=== PATIENT | female | born 1945 | race Caucasian/White ===

== ENCOUNTER → 2017-06-01 | Outpatient (CLI) | payer OTHER ==
[2017-06-01 18:01] LABS: BASO % 0.3 %; BASO ABS # 0.02 K/uL (0-0.2); EOS % 1.3 %; EOS ABS # 0.08 K/uL (0-0.5); HEMATOCRIT 44.1 % (37-47); HEMOGLOBIN 14.6 g/dL (12.0-16.0); IG# 0.01 K/uL (0.00-0.02); LYMPH % 37.4 %; LYMPH ABS # 2.34 K/uL (1.2-3.4); MEAN CORPUSCULAR HEMOGLOBIN 30.8 pg (25-34); MEAN CORPUSCULAR HGB CONC 33.1 g/dl (32-36); MEAN PLATELET VOLUME 10.5 fL (7.4-10.4); MONO ABS # 0.44 K/uL (0.11-0.59); NEUT % 53.8 %; NEUT ABS # 3.37 K/uL (1.4-6.5); PLATELET COUNT 246 K/uL (130-400); RED CELL DISTRIBUTION WIDTH SD 47.8 fL (36.4-46.3); WHITE BLOOD COUNT 6.26 K/uL (4.8-10.8)
[2017-06-01 18:25] LABS: BLOOD UREA NITROGEN 14 mg/dl (7-18); CALCIUM 9.6 mg/dl (8.5-10.1); CARBON DIOXIDE 29 mmol/L (21-32); CREATININE 0.82 mg/dl (0.60-1.20); GLUCOSE 84 mg/dl (70-99); POTASSIUM 3.9 mmol/L (3.5-5.1); SODIUM 140 mmol/L (136-145)
== END | disposition home or self-care (01) ==
LOC: C.LABMFLN 13:58
PROVIDERS: ATTEND Family Medicine
DX: R06.00 Dyspnea, unspecified (principal); R00.2 Palpitations

== ENCOUNTER → 2017-10-27 | Outpatient (CLI) | payer OTHER ==
[2017-10-27 14:04] LABS: ALBUMIN 3.6 gm/dl (3.4-5.0); ALKALINE PHOSPHATASE 73 U/L (45-117); ALT/SGPT 18 U/L (12-78); AST/SGOT 16 U/L (15-37); BLOOD UREA NITROGEN 21 mg/dl (7-18); CALCIUM 9.4 mg/dl (8.5-10.1); CARBON DIOXIDE 29 mmol/L (21-32); CREATININE 0.76 mg/dl (0.60-1.20); GLUCOSE 88 mg/dl (70-99); POTASSIUM 4.2 mmol/L (3.5-5.1); SODIUM 142 mmol/L (136-145); TOTAL PROTEIN 6.9 gm/dl (6.4-8.2)
== END | disposition home or self-care (01) ==
LOC: C.LABMFLN 07:34
PROVIDERS: ATTEND Family Medicine
DX: E78.5 Hyperlipidemia, unspecified (principal)

== ENCOUNTER 2019-10-25 06:34 | Observation (INO) ==
[2019-10-25] MEDS ORDERED: ACETAMINOPHEN 325 MG TAB PO PRN (08:18)
[2019-10-25] MEDS ORDERED: ONDANSETRON INJ 2 MG/ML 2 ML VIAL IV PRN (08:18)
[2019-10-25] MEDS ORDERED: Heparin IV Standard *NO* Bolus IV ONE (08:35)
--- NOTE | 2019-10-25 08:40 | History & Physical Report ---
Date of Service October 25, 2019 Assessment & Plan (1) Paroxysmal SVT (supraventricular tachycardia): h/o such, one episode in the past, saw Dr. Baker in [place] office this morning the episode resolved after about 30 minutes, did not require Adenosine keep on monitor to look for any other episodes consult cardiology echocardiogram, will follow up on results appreciate cardiology consult, plan to discuss with Dr. Sawant about EP study, ablation patient not interested in Metoprolol due to side effects (2) Elevated troponin I level: troponin at [place] ED was 30 then 62 then 80 however, this is high sensitivity assay, different than our labs troponin here is 0.381 check EKG stat -- NSR, no evidence of ischemia no chest pain or pressure with the entire episode, no chest pain currently stop heparin drip, this does NOT represent ACS, this represents demand ischemia due to tachycardia (3) Palpitations: due to SVT, resolved (4) Dyslipidemia: will continue Zocor and fish oil Admission and Anticipated Discharge Date Admission Date: October 25, 2019 History of Present Illness Chief Complaint: I had tachycardia Primary Care Provider: Marc Braga DO 74 yo female with history of SVT once in the past, otherwise in good health with seasonal allergies and some dyslipidemia, presented to the ED at [place] early this morning due to SVT. She said she knew she was in SVT, her pulse was very rapid and her body was shaking. She tried some maneuvers to break it like Valsalva and bending over but HR remained in 150-160's. After 30 minutes she went to the ED. She says that she never had chest pain or pressure, no dyspnea, no nausea. She had a slight tightness up the back of her neck. No light headedness. In the ED she converted to NSR before they could give her Adenosine. Troponin was 30 initially but this was high sensitivity. Repeat rocco up to 80. No record of ischemic changes on EKG. Due to lack of interventional cardiology and the patient was established with [facility] cardiology in the past, request was made for transfer to [facility]. Upon arrival she is in NSR, feels well, no chest pain, no dyspnea. D/w cardiol ogy, we will get EKG, repeat troponin on our lab and follow up with patient. Allergies Allergy/AdvReac Type Severity Reaction Status Date / Time famciclovir [From Famvir] Allergy Mild Unknown Verified 10/25/19 08:43 isoniazid Allergy Mild Unknown Verified 10/25/19 08:43 Home Medications Home Medications Medication Instructions Recorded Confirmed Type cholecalciferol (vitamin D3) 25 4,000 units PO DAILY #360 tab 10/11/18 09/25/19 Rx mcg (1,000 unit) tablet xgxqjsat-sfd-uqwxc acid 0.4 1 tab PO DAILY #90 tab 10/11/18 09/25/19 Rx mg-lycopene 300 mcg-lutein 250 mcg tablet omega-3 acid ethyl esters 1 gram 2 cap PO DAILY #180 cap 10/11/18 09/25/19 Rx capsule loratadine-pseudoephedrine ER 10 1 tab PO DAILY 10/17/18 09/25/19 History mg-240 mg tablet,extended [id number] simvastatin 20 mg tablet 20 mg PO DAILY #90 tab 01/17/19 09/25/19 Rx famotidine 20 mg tablet 40 mg PO DAILY #60 tab 03/30/19 09/25/19 Rx Past Med/Surg History Medical History Anxiety (Chronic) Atopic dermatitis (Chronic) Dyslipidemia (Chronic) Dyspnea (Chronic) Elevated bilirubin (Chronic) Elevated liver function tests (Chronic) Female stress incontinence (Chronic) Osteoporosis (Chronic) PAC (premature atrial contraction) (Chronic) Palpitations (Chronic) Paroxysmal SVT (supraventricular tachycardia) (Chronic) Stasis dermatitis, acute (Chronic) Vitamin D deficiency (Chronic) Surgical History H/O eye surgery History of colonoscopy Hx of cholecystectomy Family History Mother ARDS (adult respiratory distress syndrome) Daughter Asthma IBS (irritable bowel syndrome) Father Heart disease Myocardial infarction Grandmother Stroke Grandfather Lung cancer Social History Smoking Status: Never smoker Second Hand Exposure: Yes (Parents smoked in the house/cars); Do You Dip or Chew Tobacco: No; Tobacco Cessation Education Requested by Patient: No Hx Alcohol Use: Yes Alcohol type: beer and wine Hx Substance Use: No Preferred Language: Tajik Communication Ability: Effective Sewage Screen Operator Required: No Beliefs That Will Affect Care: None marital status: / Current Living Situation: Alone Current Living Situation Comment: Apartment current occupational status: retired Other Information That Helps Us Care for You: No Feels Safe at Home: Yes Safety Concerns: Feels Safe At This Time Childhood Exposure to Second-Hand Smoke: Yes caffeine: Yes (coffee) Dental Care, Regularly: Yes Physical Activity Frequency: 5-6 Times per Week Seatbelt Use: always Review of Systems Review of Systems: All systems reviewed & are unremarkable except as noted in Subjective Physical Exam Constitutional: WD/WN, vitals as above Eyes: PERRL, conjunctivae normal, anicteric sclerae ENMT: external ear and nose normal, oropharynx normal Neck: trachea midline, no thyromegaly Respiratory: normal respiratory effort, lungs clear to auscultation Cardiovascular: RRR, no murmur, no edema Gastrointestinal (Abdomen): normal bowel sounds, soft, nontender, no hepatosplenomegaly Musculoskeletal: no cyanosis or clubbing, extremities motor strength 5/5 Skin: no rashes, warm and dry Neurologic: patellar DTR's 2+ bilat, sensation intact and PERRL, EOMI, accommodation nl, no face palsy, no dysarthria Psychiatric: A+Ox3, euthymic affect Lymphatic: no cervical or axillary lymphadenopathy Results & Data Results & Data ([facility]) Vital Signs (Past 12 Hours) Vital Signs Temp Pulse Resp BP Pulse Ox 10/25/19 08:27 36.7 C 73 19 114/66 98 Laboratory Results Laboratory Results - last 24 hr 10/25/19 10/25/19 09:10 12:27 APTT 62.0 H* PTT Ratio 2.2 Sodium 145 Potassium 4.3 Chloride 114 H Carbon Dioxide 26 Anion Gap 5.0 BUN 14 Creatinine 0.70 Est Cr Clr Drug Dosing 62.5 Est GFR ( Amer) 97.5 Est GFR (Non-Af Amer) 84.2 BUN/Creatinine Ratio 20.1 H Glucose 100 H Calcium 9.3 Troponin I 0.381 H* ECG Indication: tachycardia Rhythm: normal sinus Findings: no ST depression, no ST elevation and no acute ischemic change Code Status & VTE Plan VTE Prophylaxis Plan VTE Prophylaxis will be ordered: Yes PG Care Time/CCT Total # of Minutes Spent Total Time Spent with Patient: Total time spent is greater than 50% in coordination of care (as documented) at patient's floor/unit and/or counseling patient: Coding Level of Care Code 67395 Initial Inpt Care Lvl 3 Diagnoses Paroxysmal SVT (supraventricular tachycardia) I47.1 Elevated troponin I level R79.89 Palpitations R00.2 Dyslipidemia E78.5
[2019-10-25] MEDS ORDERED: HEPARIN SODIUM/DEXTROSE 25,000 UNITS/500 ML BAG IV SCH (08:45)
[2019-10-25] MEDS ORDERED: PATIENT'S HEIGHT AND/OR WEIGHT NEEDED SCH (09:15)
[2019-10-25 09:36] LABS: BUN Creatinine Ratio 20.1 (10-20); Calcium 9.3 mg/dl (8.5-10.1); Creatinine Clr Calc Pharmacy 62.5 ml/min; Est GFR (African American) 97.5; Est GFR (Non-African American) 84.2; Potassium 4.3 mmol/L (3.5-5.1)
[2019-10-25 09:44] LABS: Troponin I 0.381 ng/ml (0-0.045)
--- NOTE | 2019-10-25 10:21 | Cardiology Consultation ---
Date of Consultation October 25, 2019 Assessment & Plan (1) Paroxysmal SVT (supraventricular tachycardia): Mrs. Dallas is a 74-year-old female with a history of Paroxysmal Supraventricular Tachycardia, well controlled Dyslipidemia, PAC's, PVC's, Osteoporosis, Anxiety, Atopic Dermatitis, and Nephrolithiasis who was transferred here from [facility] ER with upward trending high sensitivity Cardiac Troponin T levels following an episode of her PSVT in the certified physician assistant hours today. Patient has been feeling well with stable exertional tolerance leading up to this event -- although she experiences chronic and relatively frequent but brief episodes of Tachy-palpitations at baseline. Patient was suddenly awakened at approximately 0200 with PSVT with a HR in the 150 to 160 bpm range. In addition to the palpitations, she felt a "flushing sensation" that extended up her posterior neck up over the top of her head, was sweating, and had some associated dyspnea. She got out of bed to walk around and felt a generalized weakness. She attempted Valsalva maneuvers and tried bending over frequently to break her arrhythmia -- but it these maneuvers did not work. Patient denies any other associated symptoms Patient cannot identify any particular triggers that may have contributed to this episode of SVT. This episode of SVT was the longest that she ever experienced -- lasting more than 30 minutes (with previous longest episode lasting 10 minutes). Patient called 911 and her Narrow Complex Tachycardia was captured on their monitor. An IV was started and before Adenosine was administered in the field -- patient converted spontaneously into a NSR, and immediately her symptoms resolved. In the [facility] ER she maintained a NSR and was completely asymptomatic. EKG showed a NSR without ischemic changes. Initial high sensitivity Cardiac Troponin T was 30 ng/L, with follow-up values of 0.62 ng/L and 88 ng/L. Decision was made to transfer from [facility] to [facility] because of our Interventional capabilities. 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 Patient verbalized understanding of our discussion. We discussed various treatment strategies including medications (which she is not interested in -- side effects previously with Metoprolol) and we discussed possibly doing an EP Study with Ablation -- which has a high success rate. 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 -- Treatment of choice will be EP study with ablation for possible cure of AVNRT -- I will discuss her case with Dr. Sawant and Dr. Arnold. -- Check Echocardiogram to assess wall motion, cardiac structure and function. -- Provided there are no WMA's on Echo -- would only consider ischemic work-up in the future if patient developed any anginal type symptoms. -- Cholesterol is already very well controlled on Simvastatin. -- She does not have evidence of hypertension or other significant risk factor other than age. -- Consider Aspirin 81 mg daily for primary prevention if patient willing to take this medication. -- Stop Heparin drip. (2) Demand ischemia: -- As outlined above. -- This is NOT an acute coronary syndrome. -- Treat underlying AVNRT. -- Minimize cardiac risk factors. -- Continue Simvastatin. -- Consider Aspirin 81 mg daily for primary prevention. (3) Dyslipidemia: -- Controlled. -- Continue Statin. -- Maintain a heart healthy diet. History of Present Illness Reason for Consultation: -- Paroxysmal Supraventricular Tachycardia. -- Elevated Troponin I secondary to Demand Ischemia. Requesting Physician: Kayode Fraser DO Attending Physician: Saqib Sawant MD History of Present Illness Mrs. Dallas is a 74-year-old female with a history of Paroxysmal Supraventricular Tachycardia, well controlled Dyslipidemia, PAC's, PVC's, Osteoporosis, Anxiety, Atopic Dermatitis, and Nephrolithiasis who was transferred here from [facility] ER with upward trending high sensitivity Cardiac Troponin T levels following an episode of her PSVT in the certified physician assistant hours today. Patient has been in her usual state of health and has been feeling well with stable exertional tolerance although she does admit to having chronic and relatively frequent but brief episodes of Tachy-palpitations at baseline. Patient fell asleep last evening and was suddenly awakened at approximately 0200 with Tachy-palpitations/Tachycardia with a HR in the 150 to 160 bpm range. In addition to the palpitations, she felt a "flushing sensation" that extended up her posterior neck up over the top of her head, was sweating, and had some associated dyspnea. She got out of bed to walk around and felt a generalized weakness. She attempted Valsalva maneuvers and tried bending over frequently to break her arrhythmia -- but it these maneuvers did not work. Patient denies any other symptoms -- specifically denying any associated chest pain, heaviness, tightness, pressure, or discomfort. She denies any associated neck, back, shoulder, jaw, or arm pain. She denies any associated vomiting, syncope, or near syncope. Patient cannot identify any particular triggers that may have contributed to this episode of SVT. She had a beer before bed which she typically does 4 or 5 times a month. Her diet, caloric intake, fluid intake, activity levels, and medical regimen have all been stable. This episode was the longest that she ever experienced -- lasting a little more than 30 minutes (with previous longest episode lasting 10 minutes). Patient called 911 and her PSVT / Narrow Complex Tachycardia was captured on their monitor (these rhythm strips are not in the records that were provided to us). An IV was started and before Adenosine was administered in the field -- patient converted spontaneously into a NSR, and immediately her symptoms resolved. In the [facility] ER she maintained a NSR and was completely asymptomatic. EKG showed a NSR without ischemic changes. Initial high sensitivity Cardiac Troponin T was 30 ng/L, with follow-up values of 0.62 ng/L and 88 ng/L. Decision was made to transfer from [facility] to [facility] because of our Interventional capabilities. Please note that the patient was previously on Metoprolol but could not tolerate the side effects. At the present time, patient is being seen in room 242. She states that she feels "perfectly fine and I am ready to go home". She denies any recurrent palpitations since being admitted here and she has maintained NSR on telemetry monitoring. She denies any cardiopulmonary symptoms currently. She has had the following Cardiac Studies/Procedures: STRESS ECHOCARDIOGRAM 11/11/2015 [facility]: -- Negative for ischemia. -- Apical hypokinesis at rest and with exercise, without change. -- Achieved 103% MPHR. -- 4 minutes 9 seconds Dave protocol. -- LVEF 55%-59%. -- Type 1 diastolic dysfunction. -- No significant valvular abnormalities reported. HOLTER MONITOR 06/02/2017 [facility]: -- Sinus rhythm. -- Average HR 70, ranging 52-143 bpm. -- Rare PACs and PVCs. -- One episode of SVT with retrograde P-wave 136 bpm, lasting 29 beats. -- Two episodes of palpitations occurred during sinus rhythm. ECHOCARDIOGRAM 08/20/2017: -- Normal LV size, wall motion, and systolic function. -- LVEF 60%-65%. -- Type 1 diastolic dysfunction. -- Trace to mild MR. -- Normal estimated RVSP of 23 mmHg. Allergies Allergy/AdvReac Type Severity Reaction Status Date / Time famciclovir [From Famvir] Allergy Mild Unknown Verified 10/25/19 08:43 isoniazid Allergy Mild Unknown Verified 10/25/19 08:43 Home Medications Home Medications Medication Instructions Recorded Confirmed Type cholecalciferol (vitamin D3) 25 4,000 units PO DAILY #360 tab 10/11/18 09/25/19 Rx mcg (1,000 unit) tablet rldyuswm-lgs-xhwrd acid 0.4 1 tab PO DAILY #90 tab 10/11/18 09/25/19 Rx mg-lycopene 300 mcg-lutein 250 mcg tablet omega-3 acid ethyl esters 1 gram 2 cap PO DAILY #180 cap 10/11/18 09/25/19 Rx capsule loratadine-pseudoephedrine ER 10 1 tab PO DAILY 10/17/18 09/25/19 History mg-240 mg tablet,extended [id number] simvastatin 20 mg tablet 20 mg PO DAILY #90 tab 01/17/19 09/25/19 Rx famotidine 20 mg tablet 40 mg PO DAILY #60 tab 03/30/19 09/25/19 Rx Patient History Medical History Anxiety (Chronic) Atopic dermatitis (Chronic) Dyslipidemia (Chronic) Dyspnea (Chronic) Elevated bilirubin (Chronic) Elevated liver function tests (Chronic) Female stress incontinence (Chronic) Osteoporosis (Chronic) PAC (premature atrial contraction) (Chronic) Palpitations (Chronic) Paroxysmal SVT (supraventricular tachycardia) (Chronic) Stasis dermatitis, acute (Chronic) Vitamin D deficiency (Chronic) Surgical History H/O eye surgery History of colonoscopy Hx of cholecystectomy Family History Mother ARDS (adult respiratory distress syndrome) Daughter Asthma IBS (irritable bowel syndrome) Father Heart disease Myocardial infarction Grandmother Stroke Grandfather Lung cancer Social History Smoking Status: Never smoker Second Hand Exposure: Yes (Parents smoked in the house/cars); Do You Dip or Chew Tobacco: No; Tobacco Cessation Education Requested by Patient: No Hx Alcohol Use: Yes Alcohol type: beer and wine Hx Substance Use: No Preferred Language: Vietnamese Communication Ability: Effective Curriculum And Instruction Director Required: No Beliefs That Will Affect Care: None marital status: / Current Living Situation: Alone Current Living Situation Comment: Apartment current occupational status: retired Other Information That Helps Us Care for You: No Feels Safe at Home: Yes Safety Concerns: Feels Safe At This Time Childhood Exposure to Second-Hand Smoke: Yes caffeine: Yes (coffee) Dental Care, Regularly: Yes Physical Activity Frequency: 5-6 Times per Week Seatbelt Use: always Physical Exam Physical Exam: GENERAL: Patient in no acute distress. HEENT: Head is atraumatic, normocephalic. EOM's intact. Facies symmetric. No perioral cyanosis. NECK: No JVD. JVP is at the level of the clavicle sitting upright. Carotid upstrokes are + 2 bilaterally. No bruits are noted. CHEST/LUNGS: Clear to auscultation throughout all lung garnica. No wheezes, rales, or crackles. CVS: S1 and S2 are regular without murmurs, gallops, or rubs. PMI is nondisplaced. No lifts, heaves, or thrills. No abdominal aortic or renal bruits. ABDOMINAL EXAM: Bowel sounds are present. No masses, organomegaly, or tenderness. EXTREMITIES: No clubbing or cyanosis. No edema. Intact posterior tibial and radial pulses bilaterally. NEUROLOGIC EXAM: Patient is awake, alert, and oriented. Pleasant and cooperative. Answers questions appropriately. Speech is clear. Normal movement in all 4 extremities. TELEMETRY: -- NSR. EKG 10/25/2019: -- NSR with an RSR' complex in V1. -- No ST segment or T-wave abnormalities. ECHOCARDIOGRAM is pending. Results & Data ([facility]) Vital Signs (Past 12 Hours) Vital Signs Temp Pulse Resp BP Pulse Ox 10/25/19 08:27 36.7 C 73 19 114/66 98 Laboratory Results Laboratory Results - last 24 hr 10/25/19 09:10 Sodium 145 Potassium 4.3 Chloride 114 H Carbon Dioxide 26 Anion Gap 5.0 BUN 14 Creatinine 0.70 Est Cr Clr Drug Dosing 62.5 Est GFR ( Amer) 97.5 Est GFR (Non-Af Amer) 84.2 BUN/Creatinine Ratio 20.1 H Glucose 100 H Calcium 9.3 Troponin I 0.381 H* Medications Administered Active Medications Generic Name Dose Route Start Last Admin Trade Name Freq PRN Reason Stop Dose Admin Acetaminophen 650 mg 10/25/19 08:18 Tylenol PO 11/24/19 08:17 Q4H PRN Pain or Fever Heparin Sodium/Dextrose 25,000 units in 500 mls @ 21 mls/hr 10/25/19 08:45 Heparin Sodium/Dextrose IV 11/24/19 08:44 .[id number] [facility] Protocol 1,050 UNITS/HR Ondansetron HCl 4 mg 10/25/19 08:18 Zofran IV 11/24/19 08:17 Q6H PRN Nausea PG Care Time/CCT Total # of Minutes Spent Total Time Spent with Patient: Total time spent is greater than 50% in coordination of care (as documented) at patient's floor/unit and/or counseling patient: Coding Level of Care Code 98712 Initial Inpt Care Lvl 3 Diagnoses Paroxysmal SVT (supraventricular tachycardia) I47.1 Demand ischemia I24.8 Dyslipidemia E78.5
--- NOTE | 2019-10-25 12:43 | Electrocardiogram Report ---
Test Reason : Blood Pressure : / mmHG Vent. Rate : 068 BPM Atrial Rate : 068 BPM P-R Int : 202 ms QRS Dur : 092 ms QT Int : 406 ms P-R-T Axes : 063 -18 042 degrees QTc Int : 431 ms Normal sinus rhythm Low voltage QRS Borderline ECG No previous ECGs available Confirmed by Topher Arnold ([id number]) on 10/25/2019 12:43:05 PM Referred By: Td Matthew Confirmed By:Topher Arnold
[2019-10-25 13:01] LABS: Partial Thromboplastin Ratio 2.2
--- NOTE | 2019-10-25 16:38 | XCELERA ---
[id number]
[2019-10-26 07:27] LABS: Partial Thromboplastin Ratio 0.9; Partial Thromboplastin Time 26.1 Seconds (21.0-31.0)
[2019-10-26] MEDS ORDERED: SIMVASTATIN 20 MG TAB PO SCH (09:00)
[2019-10-26] MEDS ORDERED: CHOLECALCIFEROL 1,000 UNITS 25 MCG TAB PO SCH (09:00)
[2019-10-26] MEDS ORDERED: OMEGA-3 (PURIFIED FISH OIL) 1 GM CAP PO SCH (09:00)
--- NOTE | 2019-10-26 09:56 | Discharge Summary ---
Date of Service October 26, 2019 Admission HPI Per Admitting Provider 74 yo female with history of SVT once in the past, otherwise in good health with seasonal allergies and some dyslipidemia, presented to the ED at [place] early this morning due to SVT. She said she knew she was in SVT, her pulse was very rapid and her body was shaking. She tried some maneuvers to break it like Valsalva and bending over but HR remained in 150-160's. After 30 minutes she went to the ED. She says that she never had chest pain or pressure, no dyspnea, no nausea. She had a slight tightness up the back of her neck. No light headedness. In the ED she converted to NSR before they could give her Adenosine. Troponin was 30 initially but this was high sensitivity. Repeat rocco up to 80. No record of ischemic changes on EKG. Due to lack of interventional cardiology and the patient was established with [facility] cardiology in the past, request was made for transfer to [facility]. Upon arrival she is in NSR, feels well, no chest pain, no dyspnea. D/w cardiology, we will get EKG, repeat troponin on our lab and follow up with patient. Principal Diagnosis Paroxysmal SVT Discharge Exam Constitutional WD/WN, vitals as above Eyes PERRL, conjunctivae normal, anicteric sclerae ENMT external ear and nose normal, oropharynx normal Neck trachea midline, no thyromegaly Respiratory normal respiratory effort, lungs clear to auscultation Cardiovascular RRR, no murmur, no edema Gastrointestinal (Abdomen) normal bowel sounds, soft, nontender, no hepatosplenomegaly Musculoskeletal no cyanosis or clubbing, extremities motor strength 5/5 Skin no rashes, warm and dry Neurologic patellar DTR's 2+ bilat, sensation intact and PERRL, EOMI, accommodation nl, no face palsy, no dysarthria Psychiatric A+Ox3, euthymic affect Lymphatic no cervical or axillary lymphadenopathy Discharge Data Allergies Allergy/AdvReac Type Severity Reaction Status Date / Time famciclovir [From Famvir] Allergy Mild Unknown Verified 10/25/19 08:43 isoniazid Allergy Mild Unknown Verified 10/25/19 08:43 Consultations 10/25/19 08:18 Consult Cardiology Stat Hospital Course (1) Paroxysmal SVT (supraventricular tachycardia): h/o such, one episode in the past, saw Dr. Baker in [place] office morning of admission the episode resolved after about 30 minutes, did not require Adenosine no episodes while admitted consult cardiology, will follow up with Dr. Sawant on November 08 for EP study, ablation echocardiogram with normal EF, no valve disease (2) Elevated troponin I level: troponin at [place] ED was 30 then 62 then 80 however, this is high sensitivity assay, different than our labs troponin here is 0.381 check EKG stat -- NSR, no evidence of ischemia no chest pain or pressure with the entire episode, no chest pain currently stop heparin drip, this does NOT represent ACS, this represents demand ischemia due to tachycardia (3) Palpitations: due to SVT, resolved (4) Dyslipidemia: will continue Zocor and fish oil Total Time Total Time Spent Total Time Spent (In Minutes): 31 minutes Total Time Includes: Examination of the Patient, Discharge Planning, Medication Reconciliation and Communication With Other Providers (Dr. 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 Braga at [facility] on Wednesday10/30/2019 at 10:00 am. Please arrive at 9:45 am for your appointment. If you are unable to keep this appointment, please call the office at [phone] to reschedule. ) Diet: Regular Addtl Attending Provider Instructions: Medications: no changes Paroxysmal SVT: resolved spontaneously Dr. Sawant planning for ablation procedure, his office will contact you tentative date is November 08 no need for Holter Monitor that was scheduled for next week Pending Studies at Discharge: No Stand-Alone Forms: My [facility], Smoking Cessation Medications and DC Order Prescriptions: Continued simvastatin 20 mg tablet 20 mg PO DAILY Qty: 90 RF: 3 famotidine 20 mg tablet 40 mg PO DAILY Qty: 60 RF: 5 cholecalciferol (vitamin D3) 1,000 unit tablet 4,000 units PO DAILY Qty: 360 RF: 3 Centrum Silver 0.4-300-250 mg-mcg-mcg tablet 1 tab PO DAILY Qty: 90 RF: 3 omega-3 acid ethyl esters 1 gram capsule 2 cap PO DAILY Qty: 180 RF: 3 loratadine-pseudoephedrine [Claritin-D 24 Hour] 10-240 mg tablet extended release 24 hr 1 tab PO DAILY RF: 0 Discharge Orders: Discharge Order (Routine); Ordered 10/26/19 Ordered By: Kayode Atkins/Other Patient Handouts: Having Catheter Ablation, Understanding Supraventricular Tachycardia SVT, Treatment for Supraventricular Tachycardia SVT Admission Data Admit Date/Time: 10/25/19 08:25 Attending Provider: Kayode Fraser Admit Provider: Td Matthew Primary Care Provider: Marc Braga Other Providers: Raffaele Shipley ; Solitario Tucker Other Interventions: Discharge Summary Assessment (RN) Last Done: 10/26/19 10:21 DC Date/Time DO NOT enter until pt leaves facility: 10/26/19 11:51 Coding Level of Care Code D/C Day Management >30 mins Diagnoses Paroxysmal SVT (supraventricular tachycardia) I47.1 Elevated troponin I level R79.89 Palpitations R00.2 Dyslipidemia E78.5
--- NOTE | 2019-10-26 22:46 | Electrocardiogram Report ---
Test Reason : Blood Pressure : / mmHG Vent. Rate : 070 BPM Atrial Rate : 070 BPM P-R Int : 198 ms QRS Dur : 092 ms QT Int : 426 ms P-R-T Axes : 064 -25 035 degrees QTc Int : 460 ms Normal sinus rhythm Low voltage QRS Borderline ECG When compared with ECG of 25-OCT-2019 08:52, No significant change was found Confirmed by Raffaele Shipley ([id number]) on 10/26/2019 10:45:56 PM Referred By: Td Matthew Confirmed By:Raffaele Shipley
== END 2019-10-26 11:51 | disposition home or self-care (01) ==
LOC: SUATTDRO 08:25 → INTOOBSV 08:25 → 2S 08:25